=== PATIENT | male | born 1955 ===

== ENCOUNTER 2017-11-15 10:26 | Emergency (ER) | payer MEDICAID ==
[2017-11-15 10:35] VITALS: PULSE 81; RESP 20; TEMP 98.2; O2SAT 99
--- NOTE | 2017-11-15 11:53 | RAD ---
PROCEDURE: Radiographs of the Chest and Right Ribs. HISTORY: rib injury COMPARISON: None available. TECHNIQUE: Frontal radiograph of the chest and multiple oblique radiographs of the right ribs were obtained. FINDINGS: RIGHT RIBS: No fracture or focal lesion visualized. LUNGS: Clear. PLEURA: No pneumothorax or pleural fluid. CARDIOVASCULAR: Normal sized heart. No pulmonary vascular congestion. OTHER FINDINGS: None. IMPRESSION: Unremarkable radiographs of the chest and right ribs. No right rib fracture.
--- NOTE | 2017-11-15 12:04 | ED PDOC ---
HPI: General Adult Time Seen by Provider: 11/15/17 10:52 Chief Complaint (Nursing): Rib Injury Chief Complaint (Provider): chest wall pain History Per: Patient (62 y/o male here for evaluation of right sided chest pain that occurred after trip and fall last week onto edge of truck. States he slipped prior to injury and there was no other dizziness/feeling unwell prior. Notes pain with movement/deep breathing and touch of area. ATtempted use of tylenol without relief.) Past Medical History Reviewed: Historical Data, Nursing Documentation, Vital Signs Vital Signs: Last Vital Signs Temp 98.2 F 11/15/17 10:34 Pulse 81 11/15/17 10:34 Resp 20 11/15/17 10:34 BP 143/86 11/15/17 12:57 Pulse Ox 99 11/16/17 10:23 - Family History Family History: States: No Known Family Hx - Home Medications Home Medications: Ambulatory Orders Medication Instructions Recorded Naproxen 375 mg PO Q8 PRN #21 tablet 11/15/17 oxyCODONE/Acetaminophen [Percocet 1 ea PO Q6 PRN #8 tab 11/15/17 5/325 mg Tab] - Allergies Allergies/Adverse Reactions: Allergies Allergy/AdvReac Type Severity Reaction Status Date / Time No Known Allergies Allergy Verified 11/15/17 10:44 Review of Systems ROS Statement: Except As Marked, All Systems Reviewed And Found Negative Cardiovascular: Positive for: Chest Pain Physical Exam - Reviewed Nursing Documentation Reviewed: Yes Vital Signs Reviewed: Yes - Physical Exam Appears: Positive for: Well, Non-toxic, No Acute Distress Head Exam: Positive for: ATRAUMATIC, NORMAL INSPECTION, NORMOCEPHALIC Skin: Positive for: Normal Color, Warm, DRY Eye Exam: Positive for: EOMI, Normal appearance, PERRL ENT: Positive for: Normal ENT Inspection Neck: Positive for: Normal, Painless ROM Cardiovascular/Chest: Positive for: Regular Rate, Rhythm. Negative for: Chest Non Tender (right sided chest wall tender by rib 5/6) Respiratory: Positive for: CNT, Normal Breath Sounds Gastrointestinal/Abdominal: Positive for: Normal Exam, Bowel Sounds, Soft Back: Positive for: Normal Inspection Extremity: Positive for: Normal ROM Neurologic/Psych: Positive for: Alert, Oriented - ECG O2 Sat by Pulse Oximetry: 99 - Progress ED Course And Treament: cxr: no rib fx as per radiology Incentive spirometry demonstrated by resp therapist for patient use Patient prescribed naproxen and percocet. D/w patient to take percocet only for pain uncontrolled by naproxen and preventing use of incentive spirometer. d/w him narcotic abuse and addictive potential of medication. These side effects discussed at length and patient advised to take 1/2 tablet for pain control initially. Patient advised to f/u with pmd for further management and re-evaluation. Disposition - Clinical Impression Clinical Impression: Rib injury - Patient ED Disposition Is Patient to be Admitted: No - Disposition Disposition: Routine/Home Disposition Time: 12:04 Condition: FAIR Prescriptions: Naproxen 375 mg PO Q8 PRN #21 tablet PRN Reason: Pain, Moderate (4-7) oxyCODONE/Acetaminophen [Percocet 5/325 mg Tab] 1 ea PO Q6 PRN #8 tab PRN Reason: Pain, Severe (8-10) Instructions: Rib Fractures in Adults Forms: [facility] (Mexican), [facility] ED School/Work Excuse
[2017-11-15 12:58] VITALS: BP 143/86
== END 2017-11-15 12:59 | disposition home or self-care (01) ==
LOC: H.ER 10:26
DX: S29.9XXA Unspecified injury of thorax, initial encounter (principal); W01.0XXA Fall on same level from slipping, tripping and stumbling without subsequent striking against object, initial encounter; Y92.89 Other specified places as the place of occurrence of the external cause